=== PATIENT | male | born 1990 | race Caucasian/White ===

== ENCOUNTER 2016-12-03 21:32 | Emergency (ER) | payer OTHER ==
[~2016-12-03] VITALS: Ht 167.6 cm; Wt 72.1 kg
[~2016-12-03 21:32] MED LIST: BACL10TA PO
[2016-12-03 21:39] VITALS: TEMP 36.4; Ht 167.6 cm; Wt 72.1 kg
--- NOTE | 2016-12-03 22:09 | DIAGNOSTIC IMAGING REPORT ---
RIGHT HAND 3 VIEWS CLINICAL HISTORY: Right hand injury. FINDINGS: 3 views of the right hand are compared to study dated 11/26/2014. The skeletal structures are well mineralized. No acute fracture is identified. There is chronic posttraumatic deformity seen in the fifth metacarpal head. Minimal dorsal soft tissue swelling is noted. IMPRESSION: 1. Mild soft tissue swelling with no radiographic evidence of acute fracture. 2. 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 Electronically signed by: Roderick Anne M.D. 12/03/2016 10:08 PM Dictated Date/Time: 12/03/2016 10:06 PM
[2016-12-03 22:26] VITALS: BP 147/89; PULSE 100; O2SAT 99
--- NOTE | 2016-12-04 17:06 | EMERGENCY ROOM VISIT NOTE ---
ED Visit Note First contact with patient: 21:43 Chief Complaint: I think I really broke my right little finger. History of Present Illness: Mr. Cedeño is a 26-year-old white male who ambulates into the ED accompanied by female friend complaining of right fifth MCP joint pain. Historically he reports she's had a previous fracture at this area. Patient reports approximately 20 minutes ago he was playing with a child. The child grabbed his finger and he attempted to pull it away and when he did he struck the corner of a table. Since that time he reports he's been having of the right fifth metacarpal phalangeal joint. He describes his pain as sharp and throbbing. He rates his discomfort 7/10. The pain is nonradiating. Pain worsens with palpation and all movements of the MCP, PIP and DIP joints. He has not identified any alleviating factors related to the pain. He has not taken any medication prior to arrival at the hospital. Associated with his pain he reports he has numbness of the finger. He denies wrist pain, other hand pain, other finger pain. Review of Systems: As noted above in history of present illness. Past Medical History: Hypertension, asthma, bronchitis, unspecified stomach disorder, kidney stones, status post wisdom teeth extraction. Current Medications: Patient denies. Allergies to Medications: Tramadol, Toradol and penicillin. Social History: Patient is not employed; he feels safe in his home environment; he admits to tobacco use and denies alcohol use. Physical Examination: Vital Signs: Date Time Temp Pulse Resp B/P Pulse Ox O2 Delivery O2 Flow Rate FiO2 12/03/16 22:26 100 18 147/89 99 Room Air 12/03/16 21:39 36.4 111 18 148/87 100 Room Air GENERAL: 26-year-old male in mild to moderate distress due to pain, nontoxic- appearing, afebrile and hemodynamically stable. NEUROLOGICAL: Awake, alert and oriented to person, place and time. Answering questions appropriately and following commands. SKIN: Warm, dry and pink. Right Hand: No soft tissue trauma noted. RIGHT HAND: No gross bony deformity. Tenderness over the fifth MCP joint and throughout the fingers including the phalanxes and the DIP and PIP joints. He refused to do range of motion exercises and muscle strength testing. I do not appreciate any bony crepitus or swelling. The finger was warm and pink and capillary refill was brisk. Patient reports she was unable to distinguish light sensations throughout the finger. ED Course: Patient is assessed as noted above. Patient was given ice for pain and comfort. Right Hand X-Rays: Was read by myself and the radiologist showing mild soft tissue swelling with no evidence of fracture or dislocations; radiologist notes chronic posttraumatic deformity in the fifth metacarpal head. Patient's finger was splinted with a metal splint and then josue taped the ring finger. Patient requested narcotic pain control; I did review his medical records and the [place] database and interpreted such as a overuse of narcotics for pain control and since there was no actual fractures or dislocations I refused. Patient was offered ibuprofen or acetaminophen and refused. Patient was educated about tonight's findings and instructed on history and the plan; he verbalized understanding and agreement with this plan. Clinical Impression: Right fifth finger pain. Decision-Making: Initially my differential diagnosis I considered fracture, dislocation, sprain, contusion and other causes. Disposition: Patient discharged home in stable condition accompanied by his girlfriend; prior to departure he was reassessed and subjectively reported he was feeling better and rated his discomfort 5/10. Plan: Comfort measures were discussed with the patient including rest, ice, ibuprofen and acetaminophen and splint use. Patient was encouraged to follow-up with orthopedics if no better in 7-10 days. Patient was encouraged return the ED for worsening pain, worsening swelling, worsening finger numbness or any new/concerning symptoms.
== END 2016-12-03 22:32 | disposition home or self-care (01) ==
LOC: C.EDB 21:33 → C.EDD 22:32
DX: M79.644 Pain in right finger(s) (principal); F17.200 Nicotine dependence, unspecified, uncomplicated

== ENCOUNTER → 2017-01-16 | Outpatient (CLI) | payer OTHER ==
[~2017-01-16] MED LIST changes: -BACL10TA PO; +CLIN300C10 PO; +CTP/1 PO; +IBUP-1428 PO; +PRT/20 PO; +PRVHFAIN INH; +SERT1TAB71 PO
--- NOTE | 2017-01-16 15:01 | DIAGNOSTIC IMAGING REPORT ---
CHEST 2 VIEWS ROUTINE CLINICAL HISTORY: WHEEZING COMPARISON STUDY: 07/29/2016 FINDINGS: The cardiac and mediastinal contours are normal. There is no evidence of focal pulmonary consolidation. There is no evidence of failure. No pleural effusions are visualized.[ IMPRESSION: No active disease in the chest. Electronically signed by: Miguelangel East M.D. 01/16/2017 3:00 PM Dictated Date/Time: 01/16/2017 2:59 PM
== END | disposition home or self-care (01) ==
LOC: C.RAD 14:44
PROVIDERS: ATTEND Internal Medicine
DX: R06.2 Wheezing (principal); J40 Bronchitis, not specified as acute or chronic

== ENCOUNTER 2017-03-04 20:02 | Emergency (ER) | payer OTHER ==
[~2017-03-04] VITALS: Ht 167.6 cm; Wt 69.9 kg
[2017-03-04 20:12] VITALS: TEMP 36.5; Ht 167.6 cm; Wt 69.9 kg
[2017-03-04] MEDS ORDERED: CLIN300C10 PO (20:42)
[2017-03-04] MEDS ORDERED: IBUP-1428 PO (20:42)
[2017-03-04] MEDS ORDERED: IBUPROFEN 800 MG TAB PO ONE (20:45)
[2017-03-04] MEDS ORDERED: CLINDAMYCIN 150MG HOME PACK PO ONE (20:45)
[2017-03-04] MEDS ORDERED: EMPTY 8 DRAM VIAL ONE (20:47)
[2017-03-04] MEDS ORDERED: PRVHFAIN INH (20:47)
[2017-03-04] MEDS ORDERED: CTP/1 PO (20:47)
[2017-03-04] MEDS ORDERED: PRT/20 PO (20:47)
[2017-03-04] MEDS ORDERED: SERT1TAB71 PO (20:47)
[2017-03-04 20:58] VITALS: BP 123/91; PULSE 81; O2SAT 98
--- NOTE | 2017-03-05 14:55 | EMERGENCY ROOM VISIT NOTE ---
ED Visit Note First contact with patient: 20:27 CHIEF COMPLAINT: I broke my tooth yesterday. HISTORY OF PRESENT ILLNESS: Mr. Cedeño is a 26-year-old white male who ambulates into the ED accompanied by a male and female friend complaining of dental pain. Patient reports yesterday he was chewing food and broke a portion of the right mandibular cuspid off during chewing. Since that time he reports he has been having pain in the area of the broken tooth. Currently he describes as a throbbing discomfort. He rates his discomfort 6/10. Pain is nonradiating. His pain worsens with palpation. He has not identified any alleviating factors related to the pain. He reports he has attempted to use [id number] medications without relief. Associated with his pain he has noted redness and swelling of the gingiva in the area surrounding the tooth and questions if he has a possible infection. Additionally he does note that he's had previous dental infections that escalate within hours of symptoms and is very fearful about a possible developing abscess. He denies any associated fevers, chills, sweats, facial swelling, sore throat, difficulty swallowing, voice changes, drooling. REVIEW OF SYSTEMS: As noted above in History of Present Illness. 8 body systems were reviewed with this patient and found to be negative unless noted above otherwise. PMH: Hypertension, asthma, kidney stones, unspecified urinary problems, wisdom teeth extraction.. CURRENT MEDICATION: Albuterol, Catapres, Zoloft, Protonix. ALLERGIES TO MEDICATION: Penicillin, tramadol, Toradol. SOCIAL HISTORY: Patient is currently employed; he feels safe in his home environment; he admits to tobacco use and denies alcohol use. PHYSICAL EXAM: Vital Signs: Date Time Temp Pulse Resp B/P Pulse Ox O2 Delivery O2 Flow Rate FiO2 03/04/17 20:58 81 16 123/91 98 03/04/17 20:12 36.5 91 18 129/82 100 Room Air General: 26 year-old male in mild distress due to pain, nontoxic appearing, afebrile and hemodynamically stable. Neurological: Awake, alert and oriented to person, place and time. Answering questions appropriately and following commands. Normal gait. Good hand eye coordination. No focal motor or sensory deficits. Skin: Warm, dry and pink. No soft tissue lesions, rashes, or trauma noted. HEENT: Atraumatic and normocephalic. Oral cavity is moist and pink. Airway is patent. Uvula is midline and no abscesses are seen. Airway is patent. Speech is normal. No drooling. Patient has multiple teeth with obvious decay. The right mandibular cuspid is broken around the outer portion towards the gumline. The gingiva is mildly erythematous and edematous and tender to palpation. The tooth is stable in its socket. I do not palpate any abscesses. No cervical or submandibular lymphadenopathy. ED COURSE: Patient is assessed as noted above. Patient is educated about his findings and instructed on her treatment plan; he verbalizes understanding and agreement with this plan. CLINIC IMPRESSION: Dental pain. Possible developing infection. DISPOSITION: Patient discharged home in stable condition; prior to departure she was reassessed and subjectively reported she was feeling the same. PLAN: Patient was prescribed ibuprofen 800 mg every 6 hours as needed for pain. Patient was prescribed clindamycin 300 mg 4 times a day for 10 days for antibiotic coverage. Patient did report he had a dentist appointment early next week and I encouraged him to keep this appointment. Patient was educated on signs of worsening dental infections. Patient was encouraged return the ED for any signs of worsening dental infections, uncontrolled pain or any new/concerning symptoms.
== END 2017-03-04 20:58 | disposition home or self-care (01) ==
LOC: C.EDB 20:03 → C.EDD 20:58
DX: S02.5XXA Fracture of tooth (traumatic), initial encounter for closed fracture (principal); X58.XXXA Exposure to other specified factors, initial encounter; I10 Essential (primary) hypertension; J45.909 Unspecified asthma, uncomplicated; Z87.442 Personal history of urinary calculi; Z79.899 Other long term (current) drug therapy; Z72.0 Tobacco use

== ENCOUNTER 2021-02-27 16:33 | Inpatient (IN) ==
[2021-02-27] MEDS ORDERED: ONDANSETRON INJ 2 MG/ML 2 ML VIAL IV STA (16:50)
[2021-02-27] MEDS ORDERED: SODIUM CHLORIDE 0.9% 1000ML 1,000 ML IV STA (16:50)
[2021-02-27] MEDS ORDERED: MoRPHine SULFATE 4 MG/ML 1 ML CARP\\VIAL IV STA ×2 (16:57→20:32)
[2021-02-27] MEDS ORDERED: ACETAMINOPHEN 1,000 MG/100 ML VIAL IV STA (16:57)
--- NOTE | 2021-02-27 16:57 | Emergency Department Note ---
Impression & Plan LLQ abdominal pain, Bloody stool, Leukocytosis, Colitis ED Provider Note NAME: BEATRICE TOMAS AGE: 30 SEX: M : 1990 ARRIVES VIA: Walk-In INFORMANT: [Patient] ED PROVIDER(S): [Roderick Yañez MD] CHIEF COMPLAINT: Abdominal pain HISTORY OF PRESENT ILLNESS: The patient is a 30-year-old male who states that last evening he began noticing left lower quadrant abdominal pain. He began having bloody loose bowel movements and he thinks he may have passed some tissue as well. He still has the pain today although it is not quite as severe. The pain is at times is an 8/10. It is colicky. He has been vomiting he has had some sweats and chills, he thinks he may have had a fever. He has not suffered trauma. There has been no cough or congestion or shortness of breath. He did notice some urinary burning the last time he went to the bathroom but, he feels he may be dehydrated. He has never had issues like this before. The patient has not eaten anything that would have given him any issues. He has not not been around anyone sick with similar symptoms. Patient was told once that his stomach lining was irritated although, he was never prescribed med ication. The patient does not use alcohol heavily. He states he almost never drinks. He does have a medical marijuana card though. REVIEW OF SYSTEMS: See HPI for pertinent positives and negatives. A total of ten systems were reviewed and were otherwise negative. PMHx/PSHx: See Below SOCIAL HISTORY: See Below. PHYSICAL EXAM: GENERAL: Patient is in no acute distress. HEENT: No acute trauma, normocephalic atraumatic, mucous membranes moist, no nasal congestion, no scleral icterus. NECK: No stridor, no adenopathy, no meningismus, trachea is midline. LUNGS: Clear to auscultation bilaterally, no wheeze, no rhonchi, breath sounds equal. HEART: Without murmurs gallops or rubs, regular rate and rhythm. ABDOMEN: Soft, moderately tender in the left lower quadrant, bowel sounds p ositive, no hernias, no peritonitis. EXTREMITIES: No cyanosis or edema, full range of motion of all the joints without pain or difficulty, no signs for acute trauma. NEUROLOGIC: Oriented x 3, no acute motor or sensory deficits, no focal weakness. SKIN: No rash, no jaundice, no diaphoresis. Groin: Circumcised, no testicular enlargement or tenderness. No hernias. Rectal: Brown stool with some blood noted on digital exam. No mass. Heme positive. No external hemorrhoid or evidence for external source for bleeding. DIFFERENTIAL DIAGNOSIS: Appendicitis, testicular torsion, infections, diverticulitis, UTI, obstruction, mesenteric ischemia, aortic pathology, inflammatory bowel disease, renal colic, PUD, pancreatitis, biliary pathology, hernia, volvulus, constipation, as well as other pathologies. EMERGENCY DEPARTMENT COURSE/PROCEDURES: MEDICAL DECISION MAKING: There is a mild leukocytosis at 13,000, this could be consistent with infection. No worrisome anemia. There was a normal platelet count. Sed rate was not e levated. No coagulopathy. No significant electrolyte abnormality or kidney failure. Lactic acid level was not elevated making bowel ischemia less likely. There was no worrisome liver enzyme elevation. No pancreatitis. Urinalysis does not show infection, ketones were seen consistent with some dehydration. Stool C. difficile was negative. Stool cultures are pending. Urine tox showed marijuana and opiates. Covid and influenza testing returned negative. Abdominal and pelvis CT showed a diffuse colitis. On exam, the patient had brown stool with blood mixed in the stool. Heme test was positive. I did speak with GI. They recommended an observation overnight. The patient may require a colonoscopy in the morning. Hydration and conservative measures were advised for now. Cause for this colitis is unclear. This may be infectious, it could be viral. Certainly, inflammatory bowel disease is a possibility. The patient was told the results of his testing, I spoke with case management. The on-call hospitalist was consulted. Past Med/Surg History Medical History Heroin addiction Hypertension Surgical History No pertinent past surgical history Family History Other Cancer Diabetes Hypertension Social History Smoking Status: Current every day smoker Tobacco Type: Cigarettes Hx Substance Use: Yes Preferred Language: Irish Feels Safe at Home: Yes Allergies Allergies Allergy/AdvReac Type Severity Reaction Status Date / Time ketorolac Allergy Intermediate Hives Verified 02/27/21 16:56 tramadol Allergy Intermediate nausea/vomi Verified 02/27/21 16:56 t Penicillins Allergy Unknown Unknown Verified 02/27/21 16:56 ADHESIVE AdvReac Intermediate ERRYTHEMA Uncoded 02/27/21 16:56 Home Meds Home Medications Medication Instructions Recorded Confirmed Medical Marijuana 0 units INHALATION DIRECTED PRN 02/27/21 02/27/21 [id number] 2 tab PO Q6H PRN 02/27/21 02/27/21 [Excedrin Extra Strength] Results & Data (ED) Vital Signs Vital Signs - 24 hr 02/27/21 16:38 02/27/21 17:21 02/27/21 19:30 Temperature 37.2 C Temperature Source Temporal Artery Scan Pulse Rate 94 H Pulse Rate [Left Finger] 84 87 Pulse Rhythm [Left Finger] Regular Pulse Strength [Left Finger] Normal Respiratory Rate 18 17 20 Respiratory Effort / Characteristics Non-Labored Respiratory Depth Normal Respiratory Pattern Regular Blood Pressure 126/89 Blood Pressure [Left Arm] 129/87 138/77 Blood Pressure Mean 101 Blood Pressure Mean [Left Arm] 101 97 Blood Pressure Position [Left Arm] Sitting Pulse Oximetry 99 99 98 Oxygen Delivery Method Room Air Room Air Room Air Sepsis Recent Fever Within 48 Hours No Sepsis New/Unexplained Change in Mental Status No Sepsis Action Taken by Nursing No Action Required 02/27/21 21:24 02/27/21 22:06 Temperature Temperature Source Pulse Rate Pulse Rate [Left Finger] 59 L 70 Pulse Rhythm [Left Finger] Pulse Strength [Left Finger] Respiratory Rate 20 20 Respiratory Effort / Characteristics Respiratory Depth Respiratory Pattern Blood Pressure Blood Pressure [Left Arm] 126/81 109/64 Blood Pressure Mean Blood Pressure Mean [Left Arm] 96 79 Blood Pressure Position [Left Arm] Pulse Oximetry 98 98 Oxygen Delivery Method Room Air Room Air Sepsis Recent Fever Within 48 Hours Sepsis New/Unexplained Change in Mental Status Sepsis Action Taken by Shelter Medications Current Medication List: was personally reviewed by me Laboratory Data Attestation: I reviewed the patient's lab results. Result diagrams: 02/27/21 21:42 02/27/21 17:09 Lab Results 02/27/21 02/27/21 02/27/21 Range/Units 17:09 17:09 17:09 WBC 13.05 H (4.8-10.8) K/uL RBC 4.83 (4.7-6.1) M/uL Hgb 14.7 (14.0-18.0) g/dL Hct 42.3 (42-52) % MCV 87.6 (80-100) fL MCH 30.4 (25-34) pg MCHC 34.8 (32-36) g/dL RDW Std Deviation 42.1 (36.4-46.3) fL RDW Coeff of Carlos 13.1 (11.5-14.5) % Plt Count 309 (130-400) K/uL MPV 10.4 (7.4-10.4) fL Immature Gran % (Auto) 0.2 % Neut % (Auto) 78.3 % Lymph % (Auto) 11.7 % Cassia % (Auto) 9.7 % Eos % (Auto) 0.0 % Baso % (Auto) 0.1 % Neut # (Auto) 10.22 H (1.4-6.5) K/uL Lymph # (Auto) 1.53 (1.2-3.4) K/uL Cassia # (Auto) 1.26 H (0.11-0.59) K/uL Eos # (Auto) 0.00 (0-0.5) K/uL Baso # (Auto) 0.01 (0-0.2) K/uL Immature Gran # (Auto) 0.03 H (0.00-0.02) K/uL ESR (0-15) mm/hr PT 10.4 (9.0-12.0) Seconds INR 1.0 (0.9-1.1) APTT 25.4 (21.0-31.0) Seconds PTT Ratio 1.0 Sodium (136-145) mmol/L Potassium (3.5-5.1) mmol/L Chloride (98-107) mmol/L Carbon Dioxide (21-32) mmol/L Anion Gap (3-11) BUN (7-18) mg/dl Creatinine (0.6-1.4) mg/dl Est Cr Clr Drug Dosing ml/min Est GFR ( Amer) Est GFR (Non-Af Amer) BUN/Creatinine Ratio (10-20) Glucose (70-99) mg/dl Lactate 1.0 (0.4-2.0) mmol/L Calcium (8.5-10.1) mg/dl Magnesium (1.8-2.4) mg/dl Total Bilirubin (0.2-1) mg/dl AST (15-37) U/L ALT (12-78) U/L Alkaline Phosphatase (45-117) U/L C-Reactive Protein (0-0.29) mg/dl Total Protein (6.4-8.2) gm/dl Albumin (3.4-5.0) gm/dl Globulin (2.5-4.0) gm/dl Albumin/Globulin Ratio (0.9-2) Lipase (73-393) U/L TSH (0.300-4.500) uIu/ml Urine Color Urine Appearance (Clear) Urine pH (4.5-7.5) Ur Specific [place] (1.000-1.030) Urine Protein (Negative) Urine Glucose (UA) (Negative) Urine Ketones (Negative) Urine Blood (Negative) Urine Nitrite (Negative) Urine Bilirubin (Negative) Urine Urobilinogen (Negative) Ur Leukocyte Esterase (Negative) Stl C. diff Tox B Gene (Neg) Urine Opiates Screen (Neg) Ur Methadone, Qual (Neg) Urine Barbiturates (Neg) Ur Phencyclidine (PCP) (Neg) U Amphetamin/Meth Scrn (Neg) MDMA (Ecstasy) Screen (Neg) U Benzodiazepines Scrn (Neg) Ur Cocaine Metabolite (Neg) U Marijuana (THC) Screen (Neg) COVID-19 Eval Order SARS-CoV-2 (PCR) (Negative) Influenza Type A (PCR) (Neg) Influenza Type B (PCR) (Neg) RSV (RT-PCR) (Neg) 02/27/21 02/27/21 02/27/21 Range/Units 17:09 17:09 17:09 WBC (4.8-10.8) K/uL RBC (4.7-6.1) M/uL Hgb (14.0-18.0) g/dL Hct (42-52) % MCV (80-100) fL MCH (25-34) pg MCHC (32-36) g/dL RDW Std Deviation (36.4-46.3) fL RDW Coeff of Carlos (11.5-14.5) % Plt Count (130-400) K/uL MPV (7.4-10.4) fL Immature Gran % (Auto) % Neut % (Auto) % Lymph % (Auto) % Cassia % (Auto) % Eos % (Auto) % Baso % (Auto) % Neut # (Auto) (1.4-6.5) K/uL Lymph # (Auto) (1.2-3.4) K/uL Cassia # (Auto) (0.11-0.59) K/uL Eos # (Auto) (0-0.5) K/uL Baso # (Auto) (0-0.2) K/uL Immature Gran # (Auto) (0.00-0.02) K/uL ESR 6 (0-15) mm/hr PT (9.0-12.0) Seconds INR (0.9-1.1) APTT (21.0-31.0) Seconds PTT Ratio Sodium 139 (136-145) mmol/L Potassium 4.2 (3.5-5.1) mmol/L Chloride 109 H (98-107) mmol/L Carbon Dioxide 25 (21-32) mmol/L Anion Gap 5.0 (3-11) BUN 10 (7-18) mg/dl Creatinine 0.79 (0.6-1.4) mg/dl Est Cr Clr Drug Dosing 117.9 ml/min Est GFR ( Amer) 138.7 Est GFR (Non-Af Amer) 119.7 BUN/Creatinine Ratio 12.1 (10-20) Glucose 116 H (70-99) mg/dl Lactate (0.4-2.0) mmol/L Calcium 8.9 (8.5-10.1) mg/dl Magnesium (1.8-2.4) mg/dl Total Bilirubin 0.6 (0.2-1) mg/dl AST 12 L (15-37) U/L ALT 19 (12-78) U/L Alkaline Phosphatase 93 (45-117) U/L C-Reactive Protein < 0.29 (0-0.29) mg/dl Total Protein 7.5 (6.4-8.2) gm/dl Albumin 4.1 (3.4-5.0) gm/dl Globulin 3.4 (2.5-4.0) gm/dl Albumin/Globulin Ratio 1.2 (0.9-2) Lipase 97 (73-393) U/L TSH 0.410 (0.300-4.500) uIu/ml Urine Color Urine Appearance (Clear) Urine pH (4.5-7.5) Ur Specific [place] (1.000-1.030) Urine Protein (Negative) Urine Glucose (UA) (Negative) Urine Ketones (Negative) Urine Blood (Negative) Urine Nitrite (Negative) Urine Bilirubin (Negative) Urine Urobilinogen (Negative) Ur Leukocyte Esterase (Negative) Stl C. diff Tox B Gene (Neg) Urine Opiates Screen (Neg) Ur Methadone, Qual (Neg) Urine Barbiturates (Neg) Ur Phencyclidine (PCP) (Neg) U Amphetamin/Meth Scrn (Neg) MDMA (Ecstasy) Screen (Neg) U Benzodiazepines Scrn (Neg) Ur Cocaine Metabolite (Neg) U Marijuana (THC) Screen (Neg) COVID-19 Eval Order SARS-CoV-2 (PCR) (Negative) Influenza Type A (PCR) (Neg) Influenza Type B (PCR) (Neg) RSV (RT-PCR) (Neg) 02/27/21 02/27/21 02/27/21 Range/Units 17:09 18:42 18:42 WBC (4.8-10.8) K/uL RBC (4.7-6.1) M/uL Hgb (14.0-18.0) g/dL Hct (42-52) % MCV (80-100) fL MCH (25-34) pg MCHC (32-36) g/dL RDW Std Deviation (36.4-46.3) fL RDW Coeff of Carlos (11.5-14.5) % Plt Count (130-400) K/uL MPV (7.4-10.4) fL Immature Gran % (Auto) % Neut % (Auto) % Lymph % (Auto) % Cassia % (Auto) % Eos % (Auto) % Baso % (Auto) % Neut # (Auto) (1.4-6.5) K/uL Lymph # (Auto) (1.2-3.4) K/uL Cassia # (Auto) (0.11-0.59) K/uL Eos # (Auto) (0-0.5) K/uL Baso # (Auto) (0-0.2) K/uL Immature Gran # (Auto) (0.00-0.02) K/uL ESR (0-15) mm/hr PT (9.0-12.0) Seconds INR (0.9-1.1) APTT (21.0-31.0) Seconds PTT Ratio Sodium (136-145) mmol/L Potassium (3.5-5.1) mmol/L Chloride (98-107) mmol/L Carbon Dioxide (21-32) mmol/L Anion Gap (3-11) BUN (7-18) mg/dl Creatinine (0.6-1.4) mg/dl Est Cr Clr Drug Dosing ml/min Est GFR ( Amer) Est GFR (Non-Af Amer) BUN/Creatinine Ratio (10-20) Glucose (70-99) mg/dl Lactate (0.4-2.0) mmol/L Calcium (8.5-10.1) mg/dl Magnesium 2.0 (1.8-2.4) mg/dl Total Bilirubin (0.2-1) mg/dl AST (15-37) U/L ALT (12-78) U/L Alkaline Phosphatase (45-117) U/L C-Reactive Protein (0-0.29) mg/dl Total Protein (6.4-8.2) gm/dl Albumin (3.4-5.0) gm/dl Globulin (2.5-4.0) gm/dl Albumin/Globulin Ratio (0.9-2) Lipase (73-393) U/L TSH (0.300-4.500) uIu/ml Urine Color Yellow Urine Appearance Clear (Clear) Urine pH 6.5 (4.5-7.5) Ur Specific [place] 1.034 H (1.000-1.030) Urine Protein Negative (Negative) Urine Glucose (UA) Negative (Negative) Urine Ketones 3+ H (Negative) Urine Blood Negative (Negative) Urine Nitrite Negative (Negative) Urine Bilirubin Negative (Negative) Urine Urobilinogen Negative (Negative) Ur Leukocyte Esterase Negative (Negative) Stl C. diff Tox B Gene (Neg) Urine Opiates Screen Pos H (Neg) Ur Methadone, Qual Neg (Neg) Urine Barbiturates Neg (Neg) Ur Phencyclidine (PCP) Neg (Neg) U Amphetamin/Meth Scrn Neg (Neg) MDMA (Ecstasy) Screen Neg (Neg) U Benzodiazepines Scrn Neg (Neg) Ur Cocaine Metabolite Neg (Neg) U Marijuana (THC) Screen Pos H (Neg) COVID-19 Eval Order SARS-CoV-2 (PCR) (Negative) Influenza Type A (PCR) (Neg) Influenza Type B (PCR) (Neg) RSV (RT-PCR) (Neg) 02/27/21 02/27/21 02/27/21 Range/Units 20:20 20:20 20:34 WBC (4.8-10.8) K/uL RBC (4.7-6.1) M/uL Hgb (14.0-18.0) g/dL Hct (42-52) % MCV (80-100) fL MCH (25-34) pg MCHC (32-36) g/dL RDW Std Deviation (36.4-46.3) fL RDW Coeff of Carlos (11.5-14.5) % Plt Count (130-400) K/uL MPV (7.4-10.4) fL Immature Gran % (Auto) % Neut % (Auto) % Lymph % (Auto) % Cassia % (Auto) % Eos % (Auto) % Baso % (Auto) % Neut # (Auto) (1.4-6.5) K/uL Lymph # (Auto) (1.2-3.4) K/uL Cassia # (Auto) (0.11-0.59) K/uL Eos # (Auto) (0-0.5) K/uL Baso # (Auto) (0-0.2) K/uL Immature Gran # (Auto) (0.00-0.02) K/uL ESR (0-15) mm/hr PT (9.0-12.0) Seconds INR (0.9-1.1) APTT (21.0-31.0) Seconds PTT Ratio Sodium (136-145) mmol/L Potassium (3.5-5.1) mmol/L Chloride (98-107) mmol/L Carbon Dioxide (21-32) mmol/L Anion Gap (3-11) BUN (7-18) mg/dl Creatinine (0.6-1.4) mg/dl Est Cr Clr Drug Dosing ml/min Est GFR ( Amer) Est GFR (Non-Af Amer) BUN/Creatinine Ratio (10-20) Glucose (70-99) mg/dl Lactate (0.4-2.0) mmol/L Calcium (8.5-10.1) mg/dl Magnesium (1.8-2.4) mg/dl Total Bilirubin (0.2-1) mg/dl AST (15-37) U/L ALT (12-78) U/L Alkaline Phosphatase (45-117) U/L C-Reactive Protein (0-0.29) mg/dl Total Protein (6.4-8.2) gm/dl Albumin (3.4-5.0) gm/dl Globulin (2.5-4.0) gm/dl Albumin/Globulin Ratio (0.9-2) Lipase (73-393) U/L TSH (0.300-4.500) uIu/ml Urine Color Urine Appearance (Clear) Urine pH (4.5-7.5) Ur Specific [place] (1.000-1.030) Urine Protein (Negative) Urine Glucose (UA) (Negative) Urine Ketones (Negative) Urine Blood (Negative) Urine Nitrite (Negative) Urine Bilirubin (Negative) Urine Urobilinogen (Negative) Ur Leukocyte Esterase (Negative) Stl C. diff Tox B Gene Negative Cdiff Gene (Neg) Urine Opiates Screen (Neg) Ur Methadone, Qual (Neg) Urine Barbiturates (Neg) Ur Phencyclidine (PCP) (Neg) U Amphetamin/Meth Scrn (Neg) MDMA (Ecstasy) Screen (Neg) U Benzodiazepines Scrn (Neg) Ur Cocaine Metabolite (Neg) U Marijuana (THC) Screen (Neg) COVID-19 Eval Order [facility]Rsv at [facility] SARS-CoV-2 (PCR) NEGATIVE (Negative) Influenza Type A (PCR) Negative (Neg) Influenza Type B (PCR) Negative (Neg) RSV (RT-PCR) Negative (Neg) 02/27/21 02/27/21 Range/Units 21:41 21:42 WBC (4.8-10.8) K/uL RBC (4.7-6.1) M/uL Hgb 14.1 (14.0-18.0) g/dL Hct 41.4 L (42-52) % MCV (80-100) fL MCH (25-34) pg MCHC (32-36) g/dL RDW Std Deviation (36.4-46.3) fL RDW Coeff of Carlos (11.5-14.5) % Plt Count (130-400) K/uL MPV (7.4-10.4) fL Immature Gran % (Auto) % Neut % (Auto) % Lymph % (Auto) % Cassia % (Auto) % Eos % (Auto) % Baso % (Auto) % Neut # (Auto) (1.4-6.5) K/uL Lymph # (Auto) (1.2-3.4) K/uL Cassia # (Auto) (0.11-0.59) K/uL Eos # (Auto) (0-0.5) K/uL Baso # (Auto) (0-0.2) K/uL Immature Gran # (Auto) (0.00-0.02) K/uL ESR (0-15) mm/hr PT (9.0-12.0) Seconds INR (0.9-1.1) APTT (21.0-31.0) Seconds PTT Ratio Sodium (136-145) mmol/L Potassium (3.5-5.1) mmol/L Chloride (98-107) mmol/L Carbon Dioxide (21-32) mmol/L Anion Gap (3-11) BUN (7-18) mg/dl Creatinine (0.6-1.4) mg/dl Est Cr Clr Drug Dosing ml/min Est GFR ( Amer) Est GFR (Non-Af Amer) BUN/Creatinine Ratio (10-20) Glucose (70-99) mg/dl Lactate 0.8 (0.4-2.0) mmol/L Calcium (8.5-10.1) mg/dl Magnesium (1.8-2.4) mg/dl Total Bilirubin (0.2-1) mg/dl AST (15-37) U/L ALT (12-78) U/L Alkaline Phosphatase (45-117) U/L C-Reactive Protein (0-0.29) mg/dl Total Protein (6.4-8.2) gm/dl Albumin (3.4-5.0) gm/dl Globulin (2.5-4.0) gm/dl Albumin/Globulin Ratio (0.9-2) Lipase (73-393) U/L TSH (0.300-4.500) uIu/ml Urine Color Urine Appearance (Clear) Urine pH (4.5-7.5) Ur Specific [place] (1.000-1.030) Urine Protein (Negative) Urine Glucose (UA) (Negative) Urine Ketones (Negative) Urine Blood (Negative) Urine Nitrite (Negative) Urine Bilirubin (Negative) Urine Urobilinogen (Negative) Ur Leukocyte Esterase (Negative) Stl C. diff Tox B Gene (Neg) Urine Opiates Screen (Neg) Ur Methadone, Qual (Neg) Urine Barbiturates (Neg) Ur Phencyclidine (PCP) (Neg) U Amphetamin/Meth Scrn (Neg) MDMA (Ecstasy) Screen (Neg) U Benzodiazepines Scrn (Neg) Ur Cocaine Metabolite (Neg) U Marijuana (THC) Screen (Neg) COVID-19 Eval Order SARS-CoV-2 (PCR) (Negative) Influenza Type A (PCR) (Neg) Influenza Type B (PCR) (Neg) RSV (RT-PCR) (Neg) Administered Medications Discontinued Medications Sodium Chloride (Nss 1000ml) 1,000 mls @ 999 mls/hr IV .Q1H1M STA Stop: 02/27/21 17:50 Last Infusion: 02/27/21 18:16 Dose: 0 mls/hr Documented by: [id number] Admin: 02/27/21 17:14 Dose: 999 mls/hr Documented by: [id number] Acetaminophen (Ofirmev) 1,000 mg in 100 mls @ 400 mls/hr IV NOW STA Stop: 02/27/21 17:11 Last Infusion: 02/27/21 17:56 Dose: 0 mls/hr Documented by: [id number] Admin: 02/27/21 17:17 Dose: 400 mls/hr Documented by: [id number] Sodium Chloride (Nss 1000ml) 1,000 mls @ 999 mls/hr IV .Q1H1M ONE Stop: 02/27/21 19:53 Last Infusion: 02/27/21 20:21 Dose: 0 mls/hr Documented by: [id number] Admin: 02/27/21 19:04 Dose: 999 mls/hr Documented by: [id number] Ceftriaxone Sodium (Rocephin) 1,000 mg in 50 mls @ 100 mls/hr IV NOW STA Stop: 02/27/21 21:52 Last Infusion: 02/27/21 22:02 Dose: 0 mls/hr Documented by: [id number] Admin: 02/27/21 21:30 Dose: 100 mls/hr Documented by: [id number] Metronidazole (Flagyl) 500 mg in 100 mls @ 100 mls/hr IV NOW STA Stop: 02/27/21 22:22 Last Admin: 02/27/21 22:01 Dose: 100 mls/hr Documented by: [id number] Ioversol (Optiray 300 100ml) 87 ml IV ONCE ONE Stop: 02/27/21 19:37 Last Admin: 02/27/21 19:37 Dose: 87 ml Documented by: [id number] Morphine Sulfate (Morphine Sulfate 4 Mg/Ml 1 Ml Carp\Vial) 4 mg IV NOW STA Stop: 02/27/21 16:58 Last Admin: 02/27/21 17:15 Dose: 4 mg Documented by: [id number] Morphine Sulfate (Morphine Sulfate 4 Mg/Ml 1 Ml Carp\Vial) 4 mg IV NOW STA Stop: 02/27/21 20:33 Last Admin: 02/27/21 20:41 Dose: 4 mg Documented by: [id number] Ondansetron HCl (Ondansetron Inj 2 Mg/Ml 2 Ml Vial) 4 mg IV NOW STA Stop: 02/27/21 16:51 Last Admin: 02/27/21 17:15 Dose: 4 mg Documented by: [id number] Imaging Data Radiologist's Impression: Abdomen/Pelvis CT 02/27/21 16:50 CT OF THE ABDOMEN AND PELVIS WITH CONTRAST CLINICAL HISTORY: Left lower quadrant abdominal pain. Rectal bleed. COMPARISON STUDY: None. TECHNIQUE: Following IV administration of 87 mL of Optiray, axial images of the abdomen and pelvis were obtained from the lung bases to the proximal femurs. Images were reviewed in the axial, sagittal, and coronal planes. IV contrast was administered without complication. Automated exposure control was utilized for the study. A dose lowering technique was utilized adhering to the principles of ALARA. Oral contrast was administered. CT DOSE: 258.90 mGy.cm FINDINGS: Lung bases are unremarkable. No pneumatosis, free air or portal venous gas is present. The liver, spleen, adrenal glands, right kidney and pancreas are normal. A 5 mm left renal calculus is present. There are no ureteral calculi and there is no hydronephrosis. There is no evidence for a bowel obstruction. The appendix is normal. There is mild wall thickening of the ascending colon, transverse colon and descending colon. No abscess is present. Major vasculature is patent. There is no biliary or pancreatic ductal dilatation. No acute fracture or suspicious lesion is identified within the visualized skeletal structures. No peripancreatic or pericholecystic infiltration is present. There is no abdominal or pelvic lymphadenopathy. IMPRESSION: 1. Mild wall thickening of the ascending colon, transverse colon and descending colon. Although this could be due to underdistention, the findings favor a nonspecific colitis. 2. No bowel obstruction. Normal appendix. 3. 5 mm left renal calculus. No ureteral calculi. ACT 112: Negative or not required by law. Electronically signed by: Hernandez Johnson M.D. 02/27/2021 7:54 PM Discharge Plan Visit Data Chief Complaint: Vomiting Stated Complaint: VOMITING, LEFT SIDE ABD PAIN ED Provider: Roderick Yañez Discharge Problem: LLQ abdominal pain, Bloody stool, Leukocytosis, Colitis Patient Disposition: Admitted As Inpatient Condition: Fair Forms Stand Alone Forms: [facility], Virtual Emergency Department, Important Visit Information Prescriptions Prescriptions: No Action Excedrin Extra Strength 250-250-65 mg Tablet 2 tab PO Q6H PRN (Reason: Pain) RF: 0 Medical Marijuana 0 units inhalation DIRECTED PRN (Reason: medicinal purposes) RF: 0 Referrals Referrals: Jose C Jordan MD [Primary Care Provider] - Discharge Problem: Leukocytosis Qualifiers: Leukocytosis type: unspecified Qualified Code(s): D72.829 - Elevated white blood cell count, unspecified
[2021-02-27 17:20] LABS: Basophils # (auto) 0.01 K/uL (0-0.2); Basophils % (auto) 0.1 %; Hematocrit (blood only) 42.3 % (42-52); Hemoglobin 14.7 g/dL (14.0-18.0); Immature Granulocytes # (auto) 0.03 K/uL (0.00-0.02); Immature Granulocytes % (auto) 0.2 %; Lymphocytes # (auto) 1.53 K/uL (1.2-3.4); Lymphocytes % (auto) 11.7 %; Mean Corpuscular Hemoglobin 30.4 pg (25-34); Mean Corpuscular Hgb Conc 34.8 g/dL (32-36); Mean Corpuscular Volume 87.6 fL (80-100); Mean Platelet Volume 10.4 fL (7.4-10.4); Monocytes # (auto) 1.26 K/uL (0.11-0.59); Monocytes % (auto) 9.7 %; Neutrophils # (auto) 10.22 K/uL (1.4-6.5); Neutrophils % (auto) 78.3 %; Platelet Count 309 K/uL (130-400); RDW Coefficient of Variation 13.1 % (11.5-14.5); RDW Standard Deviation 42.1 fL (36.4-46.3); Red Blood Count 4.83 M/uL (4.7-6.1); White Blood Count 13.05 K/uL (4.8-10.8)
[2021-02-27 17:32] LABS: Partial Thromboplastin Time 25.4 Seconds (21.0-31.0); Prothrombin Time 10.4 Seconds (9.0-12.0)
[2021-02-27 17:37] LABS: Albumin Level 4.1 gm/dl (3.4-5.0); BUN Creatinine Ratio 12.1 (10-20); Calcium 8.9 mg/dl (8.5-10.1); Creatinine Clr Calc Pharmacy 117.9 ml/min; Est GFR (African American) 138.7; Est GFR (Non-African American) 119.7; Potassium 4.2 mmol/L (3.5-5.1)
[2021-02-27 17:48] LABS: Albumin Globulin Ratio 1.2 (0.9-2); Bilirubin,Total 0.6 mg/dl (0.2-1); Globulin 3.4 gm/dl (2.5-4.0); Thyroid Stimulating Hormone 0.41 uIu/ml (0.300-4.500); Total Protein 7.5 gm/dl (6.4-8.2)
[2021-02-27 18:51] LABS: Appearance Urine Clear (Clear); Bilirubin Urine Negative (Negative); Blood Urine Negative (Negative); Color Urine Yellow; Glucose Urine UA Negative (Negative); Ketones Urine 3+ (Negative); Leukocyte Esterase Urine Negative (Negative); Nitrite Urine Negative (Negative); Protein Urine Negative (Negative); Specific Gravity Urine 1.034 (1.000-1.030); Urobilinogen Urine Negative (Negative); pH Urine 6.5 (4.5-7.5)
[2021-02-27] MEDS ORDERED: SODIUM CHLORIDE 0.9% 1000ML 1,000 ML IV ONE ×2 (18:53→23:09)
[2021-02-27 19:25] LABS: Amphetamines+Metham, Urine Neg (Neg); Barbiturates, Urine Neg (Neg); Benzodiazepine, Urine Neg (Neg); Cocaine, Urine Neg (Neg); MDMA (Ecstacy), Urine Neg (Neg); Methadone, Urine Neg (Neg); Opiate, Urine Pos (Neg); Phencyclidine, Urine Neg (Neg)
[2021-02-27] MEDS ORDERED: OPTIRAY 300 100mL IV ONE (19:36)
--- NOTE | 2021-02-27 19:55 | CT Scan Report ---
CT OF THE ABDOMEN AND PELVIS WITH CONTRAST CLINICAL HISTORY: Left lower quadrant abdominal pain. Rectal bleed. COMPARISON STUDY: None. TECHNIQUE: Following IV administration of 87 mL of Optiray, axial images of the abdomen and pelvis we re obtained from the lung bases to the proximal femurs. Images were reviewed in the axial, sagittal, and coronal planes. IV contrast was administered without complication. Automated exposure control wa s utilized for the study. A dose lowering technique was utilized adhering to the principles of ALARA . Oral contrast was administered. CT DOSE: 258.90 mGy.cm FINDINGS: Lung bases are unremarkable. No pneumatosis, free air or portal venous gas is present. The liver, spleen, adrenal glands, right kidney and pancreas are normal. A 5 mm left renal calculus is pr esent. There are no ureteral calculi and there is no hydronephrosis. There is no evidence for a bowel obstruction. The appendix is normal. There is mild wall thickening of the ascending colon, transvers e colon and descending colon. No abscess is present. Major vasculature is patent. There is no biliary or pancreatic ductal dilatation. No acute fracture or suspicious lesion is identified within the vis ualized skeletal structures. No peripancreatic or pericholecystic infiltration is present. There is n o abdominal or pelvic lymphadenopathy. IMPRESSION: 1. Mild wall thickening of the ascending colon, transverse colon and descending colon. Although this could be due to underdistention, the findings favor a nonspecific colitis. 2. No bowel obstruction. Normal appendix. 3. 5 mm left renal calculus. No ureteral calculi. ACT 112: Negative or not required by law. Electronically signed by: Hernandez Johnson M.D. 02/27/2021 7:54 PM
[2021-02-27 21:12] LABS: Influenza A virus by PCR Negative (Neg); Influenza B virus by PCR Negative (Neg); RSV by PCR Negative (Neg); SARS CoV2 RNA(COVID-19) InHosp NEGATIVE (Negative)
[2021-02-27] MEDS ORDERED: cefTRIAXone SODIUM 1,000 MG/50 ML BAG IV STA (21:23)
[2021-02-27] MEDS ORDERED: metroNIDAZOLE 500 MG/100 ML BAG IV STA (21:23)
--- NOTE | 2021-02-27 21:25 | History & Physical Report ---
Date of Service February 27, 2021 Assessment & Plan (1) Hemorrhagic colitis: Possible foodborne illness Rule out C. difficile Patient currently hemodynamically stable. ADD/anxiety/mood disorder, stable off maintenance medications Ongoing tobacco abuse GMF Stool C. difficile Ceftriaxone, Flagyl GI consult Re: Senia JAIN (ER provider late in touch with Dr. Alonzo. Nicotine patch as needed DVT prophylaxis. SCDs RE Senia JAIN Full code Text document was generated using [employer] voice recognition software. It may contain grammatical or spelling errors. Kindly contact undersigned for clarification of any documentation item in question. History of Present Illness Chief Complaint: Abdominal pain, bloody diarrhea Primary Care Provider: Jose C Jordan MD History obtained from patient and records. Medical history significant for IBS (diarrhea predominant as per patient), GERD, ADD, anxiety/mood disorder, ongoing tobacco abuse, narcotic abuse as per records, past alcohol abuse as per records. Patient had Sinhala food earlier today. Sometime later, patient noted achy left lower quadrant abdominal pain followed by bilious emesis and bloody diarrhea symptoms. Some chills. No prior episodes. No unusual weight loss. No recent out-of-town travel/antibiotic Rx. Patient consulted ER for evaluation. Medical History as above No prior endoscopies. Surgical History : Dental surgery Family History : Crohn's disease, COPD, psychiatric illness Personal/Social history : 1/2 pack daily, past alcohol abuse as per records, currently unemployed Allergies Allergy/AdvReac Type Severity Reaction Status Date / Time ketorolac Allergy Intermediate Hives Verified 02/27/21 16:56 tramadol Allergy Intermediate nausea/vomi Verified 02/27/21 16:56 t Penicillins Allergy Unknown Unknown Verified 02/27/21 16:56 ADHESIVE AdvReac Intermediate ERRYTHEMA Uncoded 02/27/21 16:56 Home Medications Medication Instructions Recorded Confirmed Type Medical Marijuana 0 units INHALATION DIRECTED PRN 02/27/21 02/27/21 History [id number] 2 tab PO Q6H PRN 02/27/21 02/27/21 History [Excedrin Extra Strength] Past Med/Surg History Medical History (Updated 02/28/21 @ 05:14 by Ger Moss MD) Heroin addiction Hypertension Surgical History No pertinent past surgical history Family History Other Cancer Diabetes Hypertension Social History Smoking Status: Current every day smoker Tobacco Type: Cigarettes Cigarettes Per Day: 1/2 pack per day; Do You Dip or Chew Tobacco: No; Tobacco Cessation Education Requested by Patient: No Hx Alcohol Use: No Hx Substance Use: Yes Last Used Substance: Days (ago) Substance Use Type Other:: medical marijuana card Preferred Language: Yi 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 Required: No Beliefs That Will Affect Care: None Current Living Situation: Family Other Information That Helps Us Care for You: No Feels Safe at Home: Yes Safety Concerns: Feels Safe At This Time Assistive Devices: Denture - Lower Review of Systems Review of Systems: As per HPI, all 10 systems reviewed, all other ROS negative Physical Exam Physical Exam: GENERAL: Comfortable, pleasant, no respiratory distress SKIN: Normal color, warm HEENT: [place] palpebral conjunctivae, no ptosis, dry buccal mucosa NECK : Supple, no tenderness CHEST : CTA, no tenderness HEART : RRR, no obvious murmurs ABDOMEN: Some distention, left-sided abdominal tenderness EXTREMITIES : No LE swelling/tenderness, no other conspicuous deformities noted NEUROLOGIC : Coherent, no facial asymmetry, no other gross focality Results & Data Results & Data ([facility]) Vital Signs (Past 12 Hours) Vital Signs Temp Pulse Pulse Resp BP BP Pulse Ox 02/27/21 19:30 87 20 138/77 98 02/27/21 17:21 84 17 129/87 99 02/27/21 16:38 37.2 C 94 H 18 126/89 99 Laboratory Results Laboratory Results WBC 13.05 K/uL (4.8-10.8) H 02/27/21 17:09 RBC 4.83 M/uL (4.7-6.1) 02/27/21 17:09 Hgb 14.7 g/dL (14.0-18.0) 02/27/21 17:09 Hct 42.3 % (42-52) 02/27/21 17:09 MCV 87.6 fL (80-100) 02/27/21 17:09 MCH 30.4 pg (25-34) 02/27/21 17:09 MCHC 34.8 g/dL (32-36) 02/27/21 17:09 RDW Std Deviation 42.1 fL (36.4-46.3) 02/27/21 17:09 RDW Coeff of Carlos 13.1 % (11.5-14.5) 02/27/21 17:09 Plt Count 309 K/uL (130-400) 02/27/21 17:09 MPV 10.4 fL (7.4-10.4) 02/27/21 17:09 Immature Gran % (Auto) 0.2 % 02/27/21 17:09 Neut % (Auto) 78.3 % 02/27/21 17:09 Lymph % (Auto) 11.7 % 02/27/21 17:09 Andrew % (Auto) 9.7 % 02/27/21 17:09 Eos % (Auto) 0.0 % 02/27/21 17:09 Baso % (Auto) 0.1 % 02/27/21 17:09 Neut # (Auto) 10.22 K/uL (1.4-6.5) H 02/27/21 17:09 Lymph # (Auto) 1.53 K/uL (1.2-3.4) 02/27/21 17:09 Andrew # (Auto) 1.26 K/uL (0.11-0.59) H 02/27/21 17:09 Eos # (Auto) 0.00 K/uL (0-0.5) 02/27/21 17:09 Baso # (Auto) 0.01 K/uL (0-0.2) 02/27/21 17:09 Immature Gran # (Auto) 0.03 K/uL (0.00-0.02) H 02/27/21 17:09 ESR 6 mm/hr (0-15) 02/27/21 17:09 PT 10.4 Seconds (9.0-12.0) 02/27/21 17:09 INR 1.0 (0.9-1.1) 02/27/21 17:09 APTT 25.4 Seconds (21.0-31.0) 02/27/21 17:09 PTT Ratio 1.0 02/27/21 17:09 Sodium 139 mmol/L (136-145) 02/27/21 17:09 Potassium 4.2 mmol/L (3.5-5.1) 02/27/21 17:09 Chloride 109 mmol/L (98-107) H 02/27/21 17:09 Carbon Dioxide 25 mmol/L (21-32) 02/27/21 17:09 Anion Gap 5.0 (3-11) 02/27/21 17:09 BUN 10 mg/dl (7-18) 02/27/21 17:09 Creatinine 0.79 mg/dl (0.6-1.4) 02/27/21 17:09 Est Cr Clr Drug Dosing 117.9 ml/min 02/27/21 17:09 Est GFR ( Amer) 138.7 02/27/21 17:09 Est GFR (Non-Af Amer) 119.7 02/27/21 17:09 BUN/Creatinine Ratio 12.1 (10-20) 02/27/21 17:09 Glucose 116 mg/dl (70-99) H 02/27/21 17:09 Lactate 1.0 mmol/L (0.4-2.0) 02/27/21 17:09 Calcium 8.9 mg/dl (8.5-10.1) 02/27/21 17:09 Total Bilirubin 0.6 mg/dl (0.2-1) 02/27/21 17:09 AST 12 U/L (15-37) L 02/27/21 17:09 ALT 19 U/L (12-78) 02/27/21 17:09 Alkaline Phosphatase 93 U/L (45-117) 02/27/21 17:09 C-Reactive Protein < 0.29 mg/dl (0-0.29) 02/27/21 17:09 Total Protein 7.5 gm/dl (6.4-8.2) 02/27/21 17:09 Albumin 4.1 gm/dl (3.4-5.0) 02/27/21 17:09 Globulin 3.4 gm/dl (2.5-4.0) 02/27/21 17:09 Albumin/Globulin Ratio 1.2 (0.9-2) 02/27/21 17:09 Lipase 97 U/L (73-393) 02/27/21 17:09 TSH 0.410 uIu/ml (0.300-4.500) 02/27/21 17:09 Urine Color Yellow 02/27/21 18:42 Urine Appearance Clear (Clear) 02/27/21 18:42 Urine pH 6.5 (4.5-7.5) 02/27/21 18:42 Ur Specific [place] 1.034 (1.000-1.030) H 02/27/21 18:42 Urine Protein Negative (Negative) 02/27/21 18:42 Urine Glucose (UA) Negative (Negative) 02/27/21 18:42 Urine Ketones 3+ (Negative) H 02/27/21 18:42 Urine Blood Negative (Negative) 02/27/21 18:42 Urine Nitrite Negative (Negative) 02/27/21 18:42 Urine Bilirubin Negative (Negative) 02/27/21 18:42 Urine Urobilinogen Negative (Negative) 02/27/21 18:42 Ur Leukocyte Esterase Negative (Negative) 02/27/21 18:42 Stl C. diff Tox B Gene Negative Cdiff Gene (Neg) 02/27/21 20:34 Urine Opiates Screen Pos (Neg) H 02/27/21 18:42 Ur Methadone, Qual Neg (Neg) 02/27/21 18:42 Urine Barbiturates Neg (Neg) 02/27/21 18:42 Ur Phencyclidine (PCP) Neg (Neg) 02/27/21 18:42 U Amphetamin/Meth Scrn Neg (Neg) 02/27/21 18:42 MDMA (Ecstasy) Screen Neg (Neg) 02/27/21 18:42 U Benzodiazepines Scrn Neg (Neg) 02/27/21 18:42 Ur Cocaine Metabolite Neg (Neg) 02/27/21 18:42 U Marijuana (THC) Screen Pos (Neg) H 02/27/21 18:42 COVID-19 Eval Order CovFluRsv at [facility] 02/27/21 20:20 SARS-CoV-2 (PCR) NEGATIVE (Negative) 02/27/21 20:20 Influenza Type A (PCR) Negative (Neg) 02/27/21 20:20 Influenza Type B (PCR) Negative (Neg) 02/27/21 20:20 RSV (RT-PCR) Negative (Neg) 02/27/21 20:20 Impressions Abdomen/Pelvis CT 02/27/21 16:50 CT OF THE ABDOMEN AND PELVIS WITH CONTRAST CLINICAL HISTORY: Left lower quadrant abdominal pain. Rectal bleed. COMPARISON STUDY: None. TECHNIQUE: Following IV administration of 87 mL of Optiray, axial images of the abdomen and pelvis were obtained from the lung bases to the proximal femurs. Images were reviewed in the axial, sagittal, and coronal planes. IV contrast was administered without complication. Automated exposure control was utilized for the study. A dose lowering technique was utilized adhering to the principles of ALARA. Oral contrast was administered. CT DOSE: 258.90 mGy.cm FINDINGS: Lung bases are unremarkable. No pneumatosis, free air or portal venous gas is present. The liver, spleen, adrenal glands, right kidney and pancreas are normal. A 5 mm left renal calculus is present. There are no ureteral calculi and there is no hydronephrosis. There is no evidence for a bowel obstruction. The appendix is normal. There is mild wall thickening of the ascending colon, transverse colon and descending colon. No abscess is present. Major vasculature is patent. There is no biliary or pancreatic ductal dilatation. No acute fracture or suspicious lesion is identified within the visualized skeletal structures. No peripancreatic or pericholecystic infiltration is present. There is no abdominal or pelvic lymphadenopathy. IMPRESSION: 1. Mild wall thickening of the ascending colon, transverse colon and descending colon. Although this could be due to underdistention, the findings favor a nonspecific colitis. 2. No bowel obstruction. Normal appendix. 3. 5 mm left renal calculus. No ureteral calculi. ACT 112: Negative or not required by law. Electronically signed by: Hernandez Johnson M.D. 02/27/2021 7:54 PM
[2021-02-27 21:54] LABS: Hematocrit (blood only) 41.4 % (42-52); Hemoglobin 14.1 g/dL (14.0-18.0)
[2021-02-27] MEDS ORDERED: MoRPHine SULFATE 2 MG/ML CARP IV PRN (23:09)
[2021-02-27] MEDS ORDERED: LORazepam 0.25 MG/0.5 ML VIAL IV PRN (23:09)
[2021-02-27] MEDS ORDERED: ACETAMINOPHEN 325 MG TAB PO PRN (23:09)
[2021-02-27] MEDS ORDERED: PROMETHAZINE HCL 12.5 MG in SODIUM CHLORIDE 0.9% 50 ML IV PRN (23:09)
[2021-02-28 05:59] LABS: Basophils # (auto) 0.03 K/uL (0-0.2); Basophils % (auto) 0.3 %; Eosinophils # (auto) 0.14 K/uL (0-0.5); Eosinophils % (auto) 1.4 %; Hematocrit (blood only) 37.7 % (42-52); Hemoglobin 12.7 g/dL (14.0-18.0); Immature Granulocytes # (auto) 0.01 K/uL (0.00-0.02); Immature Granulocytes % (auto) 0.1 %; Lymphocytes # (auto) 2.78 K/uL (1.2-3.4); Lymphocytes % (auto) 28.3 %; Mean Corpuscular Hemoglobin 30.2 pg (25-34); Mean Corpuscular Hgb Conc 33.7 g/dL (32-36); Mean Corpuscular Volume 89.8 fL (80-100); Mean Platelet Volume 10.7 fL (7.4-10.4); Monocytes # (auto) 1.26 K/uL (0.11-0.59); Monocytes % (auto) 12.8 %; Neutrophils # (auto) 5.62 K/uL (1.4-6.5); Neutrophils % (auto) 57.1 %; Platelet Count 258 K/uL (130-400); RDW Coefficient of Variation 13.4 % (11.5-14.5); RDW Standard Deviation 43.7 fL (36.4-46.3); White Blood Count 9.84 K/uL (4.8-10.8)
[2021-02-28 06:39] LABS: BUN Creatinine Ratio 9.7 (10-20); Creatinine Clr Calc Pharmacy 125.8 ml/min; Est GFR (African American) 141.7; Est GFR (Non-African American) 122.2; Potassium 3.8 mmol/L (3.5-5.1)
[2021-02-28] MEDS: oxyCODONE HCL IR 5 MG TAB (IMMEDIATE RELEASE) PO PRN ×2 (07:37→12:57)
[2021-02-28] MEDS ORDERED: metroNIDAZOLE 500 MG/100 ML BAG IV SCH (08:00)
--- NOTE | 2021-02-28 10:59 | Gastrointestinal Consultation ---
Date of Consultation February 28, 2021 Assessment & Plan (1) Hemorrhagic colitis: 30 year old male admitted w/ abd pain, cramping diarrhea w/ rectal bleeding after eating take out food. C.diff negative, culture pending. He is symptomatically improving Continue supportive measures c.diff negative follow stool culture given his symptoms and anemia HGB 12.7 will arrange OP EGD/ColonoscopyThank you for allowing us to participate in the care of this patient. Please call with any acute changes, questions or concerns. Please see addendum below with additional recommendation from my supervising physician. Recall as needed. Supervising Physician Co-Signing Physician Notes Attending attestation I have seen, examined this patient, and agree with the findings and above by our mid-level provider ABBIE Oneal, with the following additions: -Patient with diarrhea and very mild rectal bleeding after having had Finnish yesterday. Today entirely asymptomatic and feels well. -Likely gastroenteritis -Follow stool studies, will need outpatient EGD and colonoscopy for anemia and work-up. - Will sign off History of Present Illness Reason for Consultation: rectal bleeding Requesting Physician: Megan Attending Physician: Jorge L Guzman MD History of Present Illness 30 year old male with GERD, ADD, anxiety/mood disorders, IBS admitted through the ED w/ abd cramping, diarrhea w/ rectal bleeding, colitis on CT. Pt was seen and evaluated, chart reviewed. Suggests after eating amharic food he developed abd pain/cramping and diarrhea. This was loose, with BRB. Two small clots. Came to the ED as was concerned with bleeding and was admitted for colitis. This AM feeling better. No abd pain. No nausea, vomiting. Stools still loose but less frequent. No black or bloody stools. No weight loss. CTAP 2020: Mild wall thickening of the ascending colon, transverse colon and descending colon. Although this could be due to underdistention, the findings favor a nonspecific colitis. No bowel obstruction. Normal appendix. 5 mm left renal calculus. No ureteral calculi. EGD/Colon: none Allergies Allergy/AdvReac Type Severity Reaction Status Date / Time ketorolac Allergy Intermediate Hives Verified 02/27/21 16:56 tramadol Allergy Intermediate nausea/vomi Verified 02/27/21 16:56 t Penicillins Allergy Unknown Unknown Verified 02/27/21 16:56 ADHESIVE AdvReac Intermediate ERRYTHEMA Uncoded 02/27/21 16:56 Home Medications Medication Instructions Recorded Confirmed Type Medical Marijuana 0 units INHALATION DIRECTED PRN 02/27/21 02/27/21 History [id number] 2 tab PO Q6H PRN 02/27/21 02/27/21 History [Excedrin Extra Strength] Patient History Medical History (Updated 02/28/21 @ 05:14 by Ger Moss MD) Heroin addiction Hypertension Surgical History No pertinent past surgical history Family History Other Cancer Diabetes Hypertension Social History Smoking Status: Current every day smoker Tobacco Type: Cigarettes Cigarettes Per Day: 1/2 pack per day; Do You Dip or Chew Tobacco: No; Tobacco Cessation Education Requested by Patient: No Hx Alcohol Use: No Hx Substance Use: Yes Last Used Substance: Days (ago) Substance Use Type Other:: medical marijuana card Preferred Language: Australian Communication Ability: Effective Supervisor [employer] Required: No Beliefs That Will Affect Care: None Current Living Situation: Family Other Information That Helps Us Care for You: No Feels Safe at Home: Yes Safety Concerns: Feels Safe At This Time Assistive Devices: Denture - Lower Review of Systems Review of Systems: All systems reviewed & are unremarkable except as noted in HPI & below Physical Exam Constitutional: well developed, well nourished, average body habitus and well groomed; no acute distress, not ill appearing, not cachectic, no altered mental status and no language barrier Neck: trachea midline, no thyromegaly Respiratory: normal respiratory effort, lungs clear to auscultation Cardiovascular: RRR, no murmur, no edema Skin: no rashes, warm and dry Results & Data ([facility]) Vital Signs (Past 12 Hours) Vital Signs Temp Pulse Resp BP Pulse Ox 02/28/21 06:55 37.1 C 73 16 129/84 97 02/27/21 23:09 36.9 C 77 14 121/71 98 Laboratory Results 02/28/21 02/28/21 02/27/21 Range/Units 05:36 05:36 21:42 WBC 9.84 (4.8-10.8) K/uL RBC 4.20 L (4.7-6.1) M/uL Hgb 12.7 L 14.1 (14.0-18.0) g/dL Hct 37.7 L 41.4 L (42-52) % MCV 89.8 (80-100) fL MCH 30.2 (25-34) pg MCHC 33.7 (32-36) g/dL RDW Std Deviation 43.7 (36.4-46.3) fL RDW Coeff of Carlos 13.4 (11.5-14.5) % Plt Count 258 (130-400) K/uL MPV 10.7 H (7.4-10.4) fL Immature Gran % (Auto) 0.1 % Neut % (Auto) 57.1 % Lymph % (Auto) 28.3 % Crowley % (Auto) 12.8 % Eos % (Auto) 1.4 % Baso % (Auto) 0.3 % Neut # (Auto) 5.62 (1.4-6.5) K/uL Lymph # (Auto) 2.78 (1.2-3.4) K/uL Crowley # (Auto) 1.26 H (0.11-0.59) K/uL Eos # (Auto) 0.14 (0-0.5) K/uL Baso # (Auto) 0.03 (0-0.2) K/uL Immature Gran # (Auto) 0.01 (0.00-0.02) K/uL ESR (0-15) mm/hr PT (9.0-12.0) Seconds INR (0.9-1.1) APTT (21.0-31.0) Seconds PTT Ratio Sodium 145 (136-145) mmol/L Potassium 3.8 (3.5-5.1) mmol/L Chloride 113 H (98-107) mmol/L Carbon Dioxide 27 (21-32) mmol/L Anion Gap 5.0 (3-11) BUN 7 (7-18) mg/dl Creatinine 0.75 (0.6-1.4) mg/dl Est Cr Clr Drug Dosing 125.8 ml/min Est GFR ( Amer) 141.7 Est GFR (Non-Af Amer) 122.2 BUN/Creatinine Ratio 9.7 L (10-20) Glucose 99 (70-99) mg/dl Lactate (0.4-2.0) mmol/L Calcium 8.0 L (8.5-10.1) mg/dl Magnesium (1.8-2.4) mg/dl Total Bilirubin (0.2-1) mg/dl AST (15-37) U/L ALT (12-78) U/L Alkaline Phosphatase (45-117) U/L C-Reactive Protein (0-0.29) mg/dl Total Protein (6.4-8.2) gm/dl Albumin (3.4-5.0) gm/dl Globulin (2.5-4.0) gm/dl Albumin/Globulin Ratio (0.9-2) Lipase (73-393) U/L TSH (0.300-4.500) uIu/ml Urine Color Urine Appearance (Clear) Urine pH (4.5-7.5) Ur Specific [place] (1.000-1.030) Urine Protein (Negative) Urine Glucose (UA) (Negative) Urine Ketones (Negative) Urine Blood (Negative) Urine Nitrite (Negative) Urine Bilirubin (Negative) Urine Urobilinogen (Negative) Ur Leukocyte Esterase (Negative) Stl C. diff Tox B Gene (Neg) Urine Opiates Screen (Neg) U Codeine Confrm GC/MS Ur Morphine (GC/MS) Ur Hydrocodone (GC/MS) Ur Norhydrocodone Ur Noroxycodone Urine Oxycodone (GC/MS) U Oxymorphone GC/MS Ur Methadone, Qual (Neg) Ur Hydromorphone (GC/MS) Urine Barbiturates (Neg) Ur Phencyclidine (PCP) (Neg) U Amphetamin/Meth Scrn (Neg) MDMA (Ecstasy) Screen (Neg) U Benzodiazepines Scrn (Neg) Ur Cocaine Metabolite (Neg) U Marijuana (THC) Screen (Neg) U Marijuana THC Carboxy COVID-19 Eval Order SARS-CoV-2 (PCR) (Negative) Influenza Type A (PCR) (Neg) Influenza Type B (PCR) (Neg) RSV (RT-PCR) (Neg) Blood Type Antibody Screen 02/27/21 02/27/21 02/27/21 Range/Units 21:41 21:41 20:34 WBC (4.8-10.8) K/uL RBC (4.7-6.1) M/uL Hgb (14.0-18.0) g/dL Hct (42-52) % MCV (80-100) fL MCH (25-34) pg MCHC (32-36) g/dL RDW Std Deviation (36.4-46.3) fL RDW Coeff of Carlos (11.5-14.5) % Plt Count (130-400) K/uL MPV (7.4-10.4) fL Immature Gran % (Auto) % Neut % (Auto) % Lymph % (Auto) % Crowley % (Auto) % Eos % (Auto) % Baso % (Auto) % Neut # (Auto) (1.4-6.5) K/uL Lymph # (Auto) (1.2-3.4) K/uL Crowley # (Auto) (0.11-0.59) K/uL Eos # (Auto) (0-0.5) K/uL Baso # (Auto) (0-0.2) K/uL Immature Gran # (Auto) (0.00-0.02) K/uL ESR (0-15) mm/hr PT (9.0-12.0) Seconds INR (0.9-1.1) APTT (21.0-31.0) Seconds PTT Ratio Sodium (136-145) mmol/L Potassium (3.5-5.1) mmol/L Chloride (98-107) mmol/L Carbon Dioxide (21-32) mmol/L Anion Gap (3-11) BUN (7-18) mg/dl Creatinine (0.6-1.4) mg/dl Est Cr Clr Drug Dosing ml/min Est GFR ( Amer) Est GFR (Non-Af Amer) BUN/Creatinine Ratio (10-20) Glucose (70-99) mg/dl Lactate 0.8 (0.4-2.0) mmol/L Calcium (8.5-10.1) mg/dl Magnesium (1.8-2.4) mg/dl Total Bilirubin (0.2-1) mg/dl AST (15-37) U/L ALT (12-78) U/L Alkaline Phosphatase (45-117) U/L C-Reactive Protein (0-0.29) mg/dl Total Protein (6.4-8.2) gm/dl Albumin (3.4-5.0) gm/dl Globulin (2.5-4.0) gm/dl Albumin/Globulin Ratio (0.9-2) Lipase (73-393) U/L TSH (0.300-4.500) uIu/ml Urine Color Urine Appearance (Clear) Urine pH (4.5-7.5) Ur Specific [place] (1.000-1.030) Urine Protein (Negative) Urine Glucose (UA) (Negative) Urine Ketones (Negative) Urine Blood (Negative) Urine Nitrite (Negative) Urine Bilirubin (Negative) Urine Urobilinogen (Negative) Ur Leukocyte Esterase (Negative) Stl C. diff Tox B Gene Negative Cdiff Gene (Neg) Urine Opiates Screen (Neg) U Codeine Confrm GC/MS Ur Morphine (GC/MS) Ur Hydrocodone (GC/MS) Ur Norhydrocodone Ur Noroxycodone Urine Oxycodone (GC/MS) U Oxymorphone GC/MS Ur Methadone, Qual (Neg) Ur Hydromorphone (GC/MS) Urine Barbiturates (Neg) Ur Phencyclidine (PCP) (Neg) U Amphetamin/Meth Scrn (Neg) MDMA (Ecstasy) Screen (Neg) U Benzodiazepines Scrn (Neg) Ur Cocaine Metabolite (Neg) U Marijuana (THC) Screen (Neg) U Marijuana THC Carboxy COVID-19 Eval Order SARS-CoV-2 (PCR) (Negative) Influenza Type A (PCR) (Neg) Influenza Type B (PCR) (Neg) RSV (RT-PCR) (Neg) Blood Type B Positive Antibody Screen NEGATIVE 02/27/21 02/27/21 02/27/21 Range/Units 20:20 20:20 18:42 WBC (4.8-10.8) K/uL RBC (4.7-6.1) M/uL Hgb (14.0-18.0) g/dL Hct (42-52) % MCV (80-100) fL MCH (25-34) pg MCHC (32-36) g/dL RDW Std Deviation (36.4-46.3) fL RDW Coeff of Carlos (11.5-14.5) % Plt Count (130-400) K/uL MPV (7.4-10.4) fL Immature Gran % (Auto) % Neut % (Auto) % Lymph % (Auto) % Crowley % (Auto) % Eos % (Auto) % Baso % (Auto) % Neut # (Auto) (1.4-6.5) K/uL Lymph # (Auto) (1.2-3.4) K/uL Crowley # (Auto) (0.11-0.59) K/uL Eos # (Auto) (0-0.5) K/uL Baso # (Auto) (0-0.2) K/uL Immature Gran # (Auto) (0.00-0.02) K/uL ESR (0-15) mm/hr PT (9.0-12.0) Seconds INR (0.9-1.1) APTT (21.0-31.0) Seconds PTT Ratio Sodium (136-145) mmol/L Potassium (3.5-5.1) mmol/L Chloride (98-107) mmol/L Carbon Dioxide (21-32) mmol/L Anion Gap (3-11) BUN (7-18) mg/dl Creatinine (0.6-1.4) mg/dl Est Cr Clr Drug Dosing ml/min Est GFR ( Amer) Est GFR (Non-Af Amer) BUN/Creatinine Ratio (10-20) Glucose (70-99) mg/dl Lactate (0.4-2.0) mmol/L Calcium (8.5-10.1) mg/dl Magnesium (1.8-2.4) mg/dl Total Bilirubin (0.2-1) mg/dl AST (15-37) U/L ALT (12-78) U/L Alkaline Phosphatase (45-117) U/L C-Reactive Protein (0-0.29) mg/dl Total Protein (6.4-8.2) gm/dl Albumin (3.4-5.0) gm/dl Globulin (2.5-4.0) gm/dl Albumin/Globulin Ratio (0.9-2) Lipase (73-393) U/L TSH (0.300-4.500) uIu/ml Urine Color Urine Appearance (Clear) Urine pH (4.5-7.5) Ur Specific [place] (1.000-1.030) Urine Protein (Negative) Urine Glucose (UA) (Negative) Urine Ketones (Negative) Urine Blood (Negative) Urine Nitrite (Negative) Urine Bilirubin (Negative) Urine Urobilinogen (Negative) Ur Leukocyte Esterase (Negative) Stl C. diff Tox B Gene (Neg) Urine Opiates Screen (Neg) U Codeine Confrm GC/MS Pending Ur Morphine (GC/MS) Pending Ur Hydrocodone (GC/MS) Pending Ur Norhydrocodone Pending Ur Noroxycodone Pending Urine Oxycodone (GC/MS) Pending U Oxymorphone GC/MS Pending Ur Methadone, Qual (Neg) Ur Hydromorphone (GC/MS) Pending Urine Barbiturates (Neg) Ur Phencyclidine (PCP) (Neg) U Amphetamin/Meth Scrn (Neg) MDMA (Ecstasy) Screen (Neg) U Benzodiazepines Scrn (Neg) Ur Cocaine Metabolite (Neg) U Marijuana (THC) Screen (Neg) U Marijuana THC Carboxy Pending COVID-19 Eval Order [facility] at [facility] SARS-CoV-2 (PCR) NEGATIVE (Negative) Influenza Type A (PCR) Negative (Neg) Influenza Type B (PCR) Negative (Neg) RSV (RT-PCR) Negative (Neg) Blood Type Antibody Screen 02/27/21 02/27/21 02/27/21 Range/Units 18:42 18:42 17:09 WBC (4.8-10.8) K/uL RBC (4.7-6.1) M/uL Hgb (14.0-18.0) g/dL Hct (42-52) % MCV (80-100) fL MCH (25-34) pg MCHC (32-36) g/dL RDW Std Deviation (36.4-46.3) fL RDW Coeff of Carlos (11.5-14.5) % Plt Count (130-400) K/uL MPV (7.4-10.4) fL Immature Gran % (Auto) % Neut % (Auto) % Lymph % (Auto) % Crowley % (Auto) % Eos % (Auto) % Baso % (Auto) % Neut # (Auto) (1.4-6.5) K/uL Lymph # (Auto) (1.2-3.4) K/uL Crowley # (Auto) (0.11-0.59) K/uL Eos # (Auto) (0-0.5) K/uL Baso # (Auto) (0-0.2) K/uL Immature Gran # (Auto) (0.00-0.02) K/uL ESR (0-15) mm/hr PT (9.0-12.0) Seconds INR (0.9-1.1) APTT (21.0-31.0) Seconds PTT Ratio Sodium (136-145) mmol/L Potassium (3.5-5.1) mmol/L Chloride (98-107) mmol/L Carbon Dioxide (21-32) mmol/L Anion Gap (3-11) BUN (7-18) mg/dl Creatinine (0.6-1.4) mg/dl Est Cr Clr Drug Dosing ml/min Est GFR ( Amer) Est GFR (Non-Af Amer) BUN/Creatinine Ratio (10-20) Glucose (70-99) mg/dl Lactate (0.4-2.0) mmol/L Calcium (8.5-10.1) mg/dl Magnesium 2.0 (1.8-2.4) mg/dl Total Bilirubin (0.2-1) mg/dl AST (15-37) U/L ALT (12-78) U/L Alkaline Phosphatase (45-117) U/L C-Reactive Protein (0-0.29) mg/dl Total Protein (6.4-8.2) gm/dl Albumin (3.4-5.0) gm/dl Globulin (2.5-4.0) gm/dl Albumin/Globulin Ratio (0.9-2) Lipase (73-393) U/L TSH (0.300-4.500) uIu/ml Urine Color Yellow Urine Appearance Clear (Clear) Urine pH 6.5 (4.5-7.5) Ur Specific [place] 1.034 H (1.000-1.030) Urine Protein Negative (Negative) Urine Glucose (UA) Negative (Negative) Urine Ketones 3+ H (Negative) Urine Blood Negative (Negative) Urine Nitrite Negative (Negative) Urine Bilirubin Negative (Negative) Urine Urobilinogen Negative (Negative) Ur Leukocyte Esterase Negative (Negative) Stl C. diff Tox B Gene (Neg) Urine Opiates Screen Pos H (Neg) U Codeine Confrm GC/MS Ur Morphine (GC/MS) Ur Hydrocodone (GC/MS) Ur Norhydrocodone Ur Noroxycodone Urine Oxycodone (GC/MS) U Oxymorphone GC/MS Ur Methadone, Qual Neg (Neg) Ur Hydromorphone (GC/MS) Urine Barbiturates Neg (Neg) Ur Phencyclidine (PCP) Neg (Neg) U Amphetamin/Meth Scrn Neg (Neg) MDMA (Ecstasy) Screen Neg (Neg) U Benzodiazepines Scrn Neg (Neg) Ur Cocaine Metabolite Neg (Neg) U Marijuana (THC) Screen Pos H (Neg) U Marijuana THC Carboxy COVID-19 Eval Order SARS-CoV-2 (PCR) (Negative) Influenza Type A (PCR) (Neg) Influenza Type B (PCR) (Neg) RSV (RT-PCR) (Neg) Blood Type Antibody Screen 02/27/21 02/27/21 02/27/21 Range/Units 17:09 17:09 17:09 WBC (4.8-10.8) K/uL RBC (4.7-6.1) M/uL Hgb (14.0-18.0) g/dL Hct (42-52) % MCV (80-100) fL MCH (25-34) pg MCHC (32-36) g/dL RDW Std Deviation (36.4-46.3) fL RDW Coeff of Carlos (11.5-14.5) % Plt Count (130-400) K/uL MPV (7.4-10.4) fL Immature Gran % (Auto) % Neut % (Auto) % Lymph % (Auto) % Crowley % (Auto) % Eos % (Auto) % Baso % (Auto) % Neut # (Auto) (1.4-6.5) K/uL Lymph # (Auto) (1.2-3.4) K/uL Crowley # (Auto) (0.11-0.59) K/uL Eos # (Auto) (0-0.5) K/uL Baso # (Auto) (0-0.2) K/uL Immature Gran # (Auto) (0.00-0.02) K/uL ESR 6 (0-15) mm/hr PT (9.0-12.0) Seconds INR (0.9-1.1) APTT (21.0-31.0) Seconds PTT Ratio Sodium 139 (136-145) mmol/L Potassium 4.2 (3.5-5.1) mmol/L Chloride 109 H (98-107) mmol/L Carbon Dioxide 25 (21-32) mmol/L Anion Gap 5.0 (3-11) BUN 10 (7-18) mg/dl Creatinine 0.79 (0.6-1.4) mg/dl Est Cr Clr Drug Dosing 117.9 ml/min Est GFR ( Amer) 138.7 Est GFR (Non-Af Amer) 119.7 BUN/Creatinine Ratio 12.1 (10-20) Glucose 116 H (70-99) mg/dl Lactate (0.4-2.0) mmol/L Calcium 8.9 (8.5-10.1) mg/dl Magnesium (1.8-2.4) mg/dl Total Bilirubin 0.6 (0.2-1) mg/dl AST 12 L (15-37) U/L ALT 19 (12-78) U/L Alkaline Phosphatase 93 (45-117) U/L C-Reactive Protein < 0.29 (0-0.29) mg/dl Total Protein 7.5 (6.4-8.2) gm/dl Albumin 4.1 (3.4-5.0) gm/dl Globulin 3.4 (2.5-4.0) gm/dl Albumin/Globulin Ratio 1.2 (0.9-2) Lipase 97 (73-393) U/L TSH 0.410 (0.300-4.500) uIu/ml Urine Color Urine Appearance (Clear) Urine pH (4.5-7.5) Ur Specific [place] (1.000-1.030) Urine Protein (Negative) Urine Glucose (UA) (Negative) Urine Ketones (Negative) Urine Blood (Negative) Urine Nitrite (Negative) Urine Bilirubin (Negative) Urine Urobilinogen (Negative) Ur Leukocyte Esterase (Negative) Stl C. diff Tox B Gene (Neg) Urine Opiates Screen (Neg) U Codeine Confrm GC/MS Ur Morphine (GC/MS) Ur Hydrocodone (GC/MS) Ur Norhydrocodone Ur Noroxycodone Urine Oxycodone (GC/MS) U Oxymorphone GC/MS Ur Methadone, Qual (Neg) Ur Hydromorphone (GC/MS) Urine Barbiturates (Neg) Ur Phencyclidine (PCP) (Neg) U Amphetamin/Meth Scrn (Neg) MDMA (Ecstasy) Screen (Neg) U Benzodiazepines Scrn (Neg) Ur Cocaine Metabolite (Neg) U Marijuana (THC) Screen (Neg) U Marijuana THC Carboxy COVID-19 Eval Order SARS-CoV-2 (PCR) (Negative) Influenza Type A (PCR) (Neg) Influenza Type B (PCR) (Neg) RSV (RT-PCR) (Neg) Blood Type Antibody Screen 02/27/21 02/27/21 02/27/21 Range/Units 17:09 17:09 17:09 WBC 13.05 H (4.8-10.8) K/uL RBC 4.83 (4.7-6.1) M/uL Hgb 14.7 (14.0-18.0) g/dL Hct 42.3 (42-52) % MCV 87.6 (80-100) fL MCH 30.4 (25-34) pg MCHC 34.8 (32-36) g/dL RDW Std Deviation 42.1 (36.4-46.3) fL RDW Coeff of Carlos 13.1 (11.5-14.5) % Plt Count 309 (130-400) K/uL MPV 10.4 (7.4-10.4) fL Immature Gran % (Auto) 0.2 % Neut % (Auto) 78.3 % Lymph % (Auto) 11.7 % Crowley % (Auto) 9.7 % Eos % (Auto) 0.0 % Baso % (Auto) 0.1 % Neut # (Auto) 10.22 H (1.4-6.5) K/uL Lymph # (Auto) 1.53 (1.2-3.4) K/uL Crowley # (Auto) 1.26 H (0.11-0.59) K/uL Eos # (Auto) 0.00 (0-0.5) K/uL Baso # (Auto) 0.01 (0-0.2) K/uL Immature Gran # (Auto) 0.03 H (0.00-0.02) K/uL ESR (0-15) mm/hr PT 10.4 (9.0-12.0) Seconds INR 1.0 (0.9-1.1) APTT 25.4 (21.0-31.0) Seconds PTT Ratio 1.0 Sodium (136-145) mmol/L Potassium (3.5-5.1) mmol/L Chloride (98-107) mmol/L Carbon Dioxide (21-32) mmol/L Anion Gap (3-11) BUN (7-18) mg/dl Creatinine (0.6-1.4) mg/dl Est Cr Clr Drug Dosing ml/min Est GFR ( Amer) Est GFR (Non-Af Amer) BUN/Creatinine Ratio (10-20) Glucose (70-99) mg/dl Lactate 1.0 (0.4-2.0) mmol/L Calcium (8.5-10.1) mg/dl Magnesium (1.8-2.4) mg/dl Total Bilirubin (0.2-1) mg/dl AST (15-37) U/L ALT (12-78) U/L Alkaline Phosphatase (45-117) U/L C-Reactive Protein (0-0.29) mg/dl Total Protein (6.4-8.2) gm/dl Albumin (3.4-5.0) gm/dl Globulin (2.5-4.0) gm/dl Albumin/Globulin Ratio (0.9-2) Lipase (73-393) U/L TSH (0.300-4.500) uIu/ml Urine Color Urine Appearance (Clear) Urine pH (4.5-7.5) Ur Specific [place] (1.000-1.030) Urine Protein (Negative) Urine Glucose (UA) (Negative) Urine Ketones (Negative) Urine Blood (Negative) Urine Nitrite (Negative) Urine Bilirubin (Negative) Urine Urobilinogen (Negative) Ur Leukocyte Esterase (Negative) Stl C. diff Tox B Gene (Neg) Urine Opiates Screen (Neg) U Codeine Confrm GC/MS Ur Morphine (GC/MS) Ur Hydrocodone (GC/MS) Ur Norhydrocodone Ur Noroxycodone Urine Oxycodone (GC/MS) U Oxymorphone GC/MS Ur Methadone, Qual (Neg) Ur Hydromorphone (GC/MS) Urine Barbiturates (Neg) Ur Phencyclidine (PCP) (Neg) U Amphetamin/Meth Scrn (Neg) MDMA (Ecstasy) Screen (Neg) U Benzodiazepines Scrn (Neg) Ur Cocaine Metabolite (Neg) U Marijuana (THC) Screen (Neg) U Marijuana THC Carboxy COVID-19 Eval Order SARS-CoV-2 (PCR) (Negative) Influenza Type A (PCR) (Neg) Influenza Type B (PCR) (Neg) RSV (RT-PCR) (Neg) Blood Type Antibody Screen
[2021-02-28 12:28] LABS: Hemoglobin 13.5 g/dL (14.0-18.0)
--- NOTE | 2021-02-28 12:36 | Hospitalist Progress Note ---
Date of Service February 28, 2021 Assessment & Plan (1) Hemorrhagic colitis: Possible foodborne illness CT evidence of nonspecific colitis involving whole of the colon C. difficile has been negative Awaiting stool culture and blood culture Has been on intravenous antibiotics Appreciate GI input and recommendation-GI will arrange for outpatient EGD/colonoscopy Diet advance as tolerated If he is feeling much better he will be discharged this afternoon ADD/anxiety/mood disorder, stable off maintenance medications No acute anxiety and/or depression Ongoing tobacco abuse Nicotine patch as needed DVT prophylaxis. SCDs RE L GIB Full code Admission and Anticipated Discharge Date Admission Date: February 27, 2021 Subjective 02/28/2021 The patient was seen and examined in medical floor He was admitted yesterday with acute abdominal pain and bleeding per rectum following [place] food Denies any significant symptoms today. No abdominal pain, no nausea and or vomiting and diarrhea has been improving No more blood in the stool Review of Systems Review of Systems: All systems reviewed and are unremarkable except as noted below Gastrointestinal: + abdominal pain (Minimal left lower quadrant pain and tenderness); no bloating, no nausea, no vomiting and no diarrhea/loose stools Physical Exam Physical Exam: Lying in bed comfortably Constitutional: well developed and well nourished; not ill appearing Eyes: PERRL, conjunctivae normal, anicteric sclerae ENMT: external ear and nose normal, oropharynx normal Neck: trachea midline, no thyromegaly Respiratory: no respiratory distress Auscultation: lungs clear to auscultation bilaterally Cardiovascular: Rate/Rhythm: regular rate and regular rhythm; not tachycardic Heart Sounds: no murmur Extremities: no edema Gastrointestinal (Abdomen): Inspection/Auscultation: abdomen not distended Percussion/Palpation: + abdomen tender (Minimally tender left lower quadrant without any guarding and/or rigidity) and abdomen soft Musculoskeletal: No acute arthritis in any joint Neurologic: Alert, awake and oriented x3. No focal sensory and motor deficit appreciated Psychiatric: A+Ox3, euthymic affect Lymphatic: no cervical or axillary lymphadenopathy Results & Data Results & Data ([facility]) Vital Signs (Past 12 Hours) Vital Signs Temp Pulse Resp BP Pulse Ox 02/28/21 06:55 37.1 C 73 16 129/84 97 Laboratory Results Short CBC 02/27/21 02/27/21 02/28/21 Range/Units 17:09 21:42 05:36 WBC 13.05 H 9.84 (4.8-10.8) K/uL Hgb 14.7 14.1 12.7 L (14.0-18.0) g/dL Hct 42.3 41.4 L 37.7 L (42-52) % Plt Count 309 258 (130-400) K/uL 02/28/21 Range/Units 12:05 WBC (4.8-10.8) K/uL Hgb 13.5 L (14.0-18.0) g/dL Hct 40.0 L (42-52) % Plt Count (130-400) K/uL BMP 02/27/21 02/28/21 17:09 05:36 Sodium 139 145 Potassium 4.2 3.8 Chloride 109 H 113 H Carbon Dioxide 25 27 BUN 10 7 Creatinine 0.79 0.75 Glucose 116 H 99 Calcium 8.9 8.0 L Liver Function 02/27/21 Range/Units 17:09 Total Bilirubin 0.6 (0.2-1) mg/dl AST 12 L (15-37) U/L ALT 19 (12-78) U/L Alkaline Phosphatase 93 (45-117) U/L Albumin 4.1 (3.4-5.0) gm/dl Urine 02/27/21 Range/Units 18:42 Urine Color Yellow Urine Appearance Clear (Clear) Urine pH 6.5 (4.5-7.5) Ur Specific [place] 1.034 H (1.000-1.030) Urine Protein Negative (Negative) Urine Glucose (UA) Negative (Negative) Medications Administered Current Inpatient Medications Acetaminophen (Acetaminophen 325 Mg Tab) 650 mg PO Q6H PRN PRN Reason: Fever Stop: 03/29/21 23:08 Last Admin: 02/28/21 07:37 Dose: 650 mg Documented by: Promethazine HCl 12.5 mg/ (Sodium Chloride) 50.5 mls @ 202 mls/hr IV Q6H PRN PRN Reason: Nausea And Vomiting Stop: 03/29/21 23:08 Lorazepam (Ativan) 0.25 mg in 0.5 mls @ 0.5 mls/min IV Q4H PRN PRN Reason: Anxiety Stop: 03/29/21 23:08 Ceftriaxone Sodium 1,000 mg/ (Dextrose) 50 mls @ 100 mls/hr IV Q24H ANNA; Protocol Stop: 03/10/21 21:59 Metronidazole (Flagyl) 500 mg in 100 mls @ 100 mls/hr IV Q8H ANNA Stop: 03/10/21 07:59 Last Infusion: 02/28/21 08:38 Dose: Infused Documented by: Morphine Sulfate (Morphine Sulfate 2 Mg/Ml Carp) 2 mg IV Q4H PRN PRN Reason: Pain Stop: 03/13/21 23:08 Last Admin: 02/28/21 03:56 Dose: 2 mg Documented by: Oxycodone HCl (Oxycodone Hcl Ir 5 Mg Tab (Immediate Release)) 5 mg PO Q4H PRN PRN Reason: Pain Stop: 03/13/21 23:08 Last Admin: 02/28/21 07:37 Dose: 5 mg Documented by:
[2021-02-28] MEDS ORDERED: CIPROFLOXACIN 500 MG TAB PO SCH (21:00)
[2021-02-28] MEDS ORDERED: metroNIDAZOLE 500 MG TAB PO SCH (21:00)
[2021-02-28] MEDS ORDERED: cefTRIAXone SODIUM 1,000 MG in DEXTROSE 5% 50 ML IV SCH (22:00)
--- NOTE | 2021-03-01 07:40 | Discharge Summary ---
Date of Service March 01, 2021 Admission HPI Per Admitting Provider History obtained from patient and records. Medical history significant for IBS (diarrhea predominant as per patient), GERD, ADD, anxiety/mood disorder, ongoing tobacco abuse, narcotic abuse as per records, past alcohol abuse as per records. Patient had [place] food earlier today. Sometime later, patient noted achy left lower quadrant abdominal pain followed by bilious emesis and bloody diarrhea symptoms. Some chills. No prior episodes. No unusual weight loss. No recent out-of-town travel/antibiotic Rx. Patient consulted ER for evaluation. Medical History as above No prior endoscopies. Surgical History : Dental surgery Family History : Crohn's disease, COPD, psychiatric illness Personal/Social history : 1/2 pack daily, past alcohol abuse as per records, currently unemployed Admission Exam Per Admitting Provider Physical Exam: GENERAL: Comfortable, pleasant, no respiratory distress SKIN: Normal color, warm HEENT: [place] palpebral conjunctivae, no ptosis, dry buccal mucosa NECK : Supple, no tenderness CHEST : CTA, no tenderness HEART : RRR, no obvious murmurs ABDOMEN: Some distention, left-sided abdominal tenderness EXTREMITIES : No LE swelling/tenderness, no other conspicuous deformities noted NEUROLOGIC : Coherent, no facial asymmetry, no other gross focality Principal Diagnosis Nonspecific colitis, one episode of bloody diarrhea Discharge Exam Constitutional well developed and well nourished; not ill appearing Eyes PERRL, conjunctivae normal, anicteric sclerae ENMT external ear and nose normal, oropharynx normal Neck trachea midline, no thyromegaly Respiratory no respiratory distress Auscultation: lungs clear to auscultation bilaterally Cardiovascular Rate/Rhythm: regular rate and regular rhythm; not tachycardic Heart Sounds: no murmur Extremities: no edema Gastrointestinal (Abdomen) Inspection/Auscultation: abdomen not distended Percussion/Palpation: + abdomen tender (Minimally tender left lower quadrant without any guarding and/or rigidity) and abdomen soft Psychiatric A+Ox3, euthymic affect Lymphatic no cervical or axillary lymphadenopathy Discharge Data Allergies Allergy/AdvReac Type Severity Reaction Status Date / Time ketorolac Allergy Intermediate Hives Verified 02/27/21 16:56 tramadol Allergy Intermediate nausea/vomi Verified 02/27/21 16:56 t Penicillins Allergy Unknown Unknown Verified 02/27/21 16:56 ADHESIVE AdvReac Intermediate ERRYTHEMA Uncoded 02/27/21 16:56 Consultations 02/27/21 20:09 ED Decision to Admit Stat 02/27/21 23:09 Consult Gastroenterology Routine Ordered Studies 02/27/21 16:50 CT abd pelvis oral and IV con Stat Hospital Course (1) Hemorrhagic colitis: Possible foodborne illness CT evidence of nonspecific colitis involving whole of the colon C. difficile has been negative Awaiting stool culture and blood culture Has been on intravenous antibiotics Appreciate GI input and recommendation-GI will arrange for outpatient EGD/colonoscopy Diet advance as tolerated If he is feeling much better he will be discharged this afternoon ADD/anxiety/mood disorder, stable off maintenance medications No acute anxiety and/or depression Ongoing tobacco abuse Nicotine patch as needed DVT prophylaxis. SCDs RE L GIB Full code Total Time Total Time Spent Total Time Spent (In Minutes): 35 minutes Total Time Includes: Examination of the Patient, Discharge Planning, Medication Reconciliation and Communication With Other Providers Discharge Plan Discharge Items Patient Disposition: Home - Self-Care Reason For Visit: COLITIS Discharge Diagnosis: Nonspecific colitis, one episode of bloody diarrhea Condition on Discharge: Fair Activity: Resume your previous activity Non-emergency contact: Primary Care Provider Call non-emergency contact if: you have any medication questions and your symptoms worsen Follow-up/Referrals: Jose C Jordan MD [Primary Care Provider] - (Your doctor's office will call you tomorrow with an appointment within 7 days) Diet: Regular Addtl Attending Provider Instructions: Please keep appointment with your primary care provider Greer YOUNG will call you for endoscopy/colonoscopy down the line Please finish the course of antibiotic Pending Studies at Discharge: No Stand-Alone Forms: [facility], Smoking Cessation Medications and DC Order Prescriptions: New metronidazole 500 mg Tablet 500 mg PO BID 6 Days Qty: 12 RF: 0 ciprofloxacin HCl 500 mg Tablet 500 mg PO BID 6 Days Qty: 12 RF: 0 Lactinex 1 million cell tablet,chewable 1 tab PO BID Qty: 30 RF: 0 Continued Excedrin Extra Strength 250-250-65 mg Tablet 2 tab PO Q6H PRN (Reason: Pain) RF: 0 Medical Marijuana 0 units inhalation DIRECTED PRN (Reason: medicinal purposes) RF: 0 Discharge Orders: Discharge Order (Routine); Ordered 02/28/21 Ordered By: Manabendra Megan Krames/Other Patient Handouts: Anatomy of the Digestive System, How the Colon Works, Understanding Colitis Admission Data Admit Date/Time: 02/27/21 21:32 Attending Provider: Jorge L Guzman Admit Provider: Ger Moss Primary Care Provider: Jose C Jordan Other Providers: Ger Moss ; Emili Alonzo Other Interventions: Discharge Summary Assessment (RN) Last Done: 02/28/21 16:22
[2021-03-02 03:57] LABS: Codeine Urine NEGATIVE ng/mL (<50); Hydrocodone Urine NEGATIVE ng/mL (<50); Hydromor Urine NEGATIVE ng/mL (<50); Marijuana Quant, GCMS Urine >5000 ng/mL (<5); Morphine Urine 7000 ng/mL (<50); Norhydrocodone Conf Ur NEGATIVE ng/mL (<50); Noroxycodone Urine 74 ng/mL (<50); Oxycodone Urine NEGATIVE ng/mL (<50); Oxymorph Urine NEGATIVE ng/mL (<50)
== END 2021-02-28 17:31 | disposition home or self-care (01) | DRG 392 ==
LOC: ED 16:33 → 3W 21:32